=== PATIENT | female | born 1950 | race Caucasian/White ===

== ENCOUNTER 2016-08-29 01:00 | Inpatient (IN) | payer BC, MEDICAID ==
[~2016-08-29] VITALS: Ht 142.2 cm; Wt 77.1 kg
[2016-08-29] MEDS ORDERED: OCTREOTIDE ACETATE 50 MCG/ML 1ML IV STA (01:42)
[2016-08-29] MEDS ORDERED: SODIUM CHLORIDE 0.9% 1,000 ML IV ONE (01:42)
[2016-08-29] MEDS ORDERED: PANTOPRAZOLE SODIUM 40 MG/VIAL IV STA (01:42)
[2016-08-29] MEDS ORDERED: ONDANSETRON HCL 4MG/2ML VIAL IV STA (01:42)
[2016-08-29 02:15] LABS: CHLORIDE 101 mEq/L (98-107); INDEX HEMOLYSI 1 (1-3); INDEX ICTERIC 2 (1-4); INDEX LIPEMIC 1 (1-3)
[2016-08-29 02:16] LABS: BASOPHILS % 0.9 % (0.0-2.0); HEMATOCRIT. 32.8 % (36.0-48.0); HEMOGLOBIN. 10.9 g/dL (12.0-16.0); LYMPHOCYTES % 20.6 % (20.0-50.0); MEAN CORPUSCULAR HEMOGLOBIN 32.1 pg (28.0-32.0); MEAN CORPUSCULAR HGB CONC 33.4 g/dL (31.0-37.0); MEAN CORPUSCULAR VOLUME 96.2 fL (81.0-99.0); MEAN PLATELET VOLUME 9.7 fl (7.4-10.4); MONOCYTES % 6.8 % (2.0-8.0); NEUTROPHILS % 69.7 % (40.0-76.0); PLATELET 156 x1000/uL (130-400); RED BLOOD CELL COUNT 3.41 mill/uL (4.2-5.4); RED CELL DISTRIBUTION WIDTH 14.6 % (11.6-14.6); WHITE BLOOD COUNT 9.5 x1000/uL (4.5-11.0)
[2016-08-29 02:20] LABS: INR 1.2; PARTIAL THROMBOPLASTIN TIME 25.1 sec (24.0-34.0); PROTHROMBIN TIME 12.2 sec
[2016-08-29 02:24] LABS: ALANINE AMINOTRANSFERASE 40 IU/L (13-61); ALBUMIN 2.5 g/dL (3.4-5.0); ANION GAP 15; CALCIUM 9.4 mg/dL (8.5-10.1); CARBON DIOXIDE 27 mEq/L (21-32); LIPASE 220 IU/L (73-393); UREA NITROGEN BLOOD 20 mg/dL (7-21); eGFR > 60 mL/min (>60)
[2016-08-29] MEDS ORDERED: OCTREOTIDE 1,000 MCG in SODIUM CHLORIDE 0.9% 100 ML IV STA (02:31)
[2016-08-29] MEDS ORDERED: CEFTRIAXONE 1 G PREMIX 50 ML IV ONE (02:45)
[2016-08-29] MEDS ORDERED: ONDANSETRON HCL 4MG/2ML VIAL IV ONE (02:45)
[2016-08-29] MEDS ORDERED: GLIP10TA10 PO (03:50)
[2016-08-29] MEDS ORDERED: SPIR50TA26 PO (03:52)
[2016-08-29] MEDS ORDERED: DOCU-138 PO (03:52)
[2016-08-29] MEDS ORDERED: RIFA550T PO (03:53)
[2016-08-29] MEDS ORDERED: LEVO25TA7 PO (03:54)
[2016-08-29] MEDS ORDERED: FAMO20TA8 PO (03:54)
[2016-08-29] MEDS ORDERED: PROP20TA7 PO (03:55)
[2016-08-29] MEDS ORDERED: FURO40TA5 PO (03:56)
[2016-08-29 04:40] LABS: BASOPHILS % 0.2 % (0.0-2.0); EOSINOPHILS % 0.4 % (0.0-5.0); HEMATOCRIT. 30.3 % (36.0-48.0); HEMOGLOBIN. 10.3 g/dL (12.0-16.0); LYMPHOCYTES % 9.1 % (20.0-50.0); MEAN CORPUSCULAR HEMOGLOBIN 33.1 pg (28.0-32.0); MEAN CORPUSCULAR VOLUME 97.6 fL (81.0-99.0); MEAN PLATELET VOLUME 9.6 fl (7.4-10.4); MONOCYTES % 5.4 % (2.0-8.0); NEUTROPHILS % 84.9 % (40.0-76.0); PLATELET 133 x1000/uL (130-400); RED BLOOD CELL COUNT 3.11 mill/uL (4.2-5.4); RED CELL DISTRIBUTION WIDTH 14.4 % (11.6-14.6); WHITE BLOOD COUNT 9.6 x1000/uL (4.5-11.0)
[2016-08-29 12:00] VITALS: BP 128/70
[2016-08-29 12:10] VITALS: BP 128/70
[2016-08-29] MEDS ORDERED: ONDANSETRON HCL 4MG/2ML VIAL IV PRN (13:00)
[2016-08-29] MEDS ORDERED: HYDROMORPHONE HCL/PF 2MG/ML CPJ IV PRN (13:00)
[2016-08-29] MEDS ORDERED: PANTOPRAZOLE SODIUM 40 MG/VIAL IV SCH (13:00)
[2016-08-29] MEDS ORDERED: DEXTROSE 50% WATER 50ML SYRINGE IV PRN (13:15)
[2016-08-29] MEDS ORDERED: SIMETHICONE 40 MG/0.6 ML 30ML ONE (13:48)
[2016-08-29] MEDS ORDERED: SODIUM CHLORIDE 0.9% 10ML VIAL ONE (13:48)
[2016-08-29] MEDS: DEXT 5%/0.45% NACL 1000ML 1,000 ML IV SCH (14:00)
[2016-08-29] MEDS ORDERED: OCTREOTIDE 1,000 MCG in SODIUM CHLORIDE 0.9% 100 ML IV SCH (14:00)
[2016-08-29] MEDS: INSULIN LISPRO 100 UNITS/ML SUBCUT SCH ×3 (14:03→22:15)
[2016-08-29] MEDS ORDERED: PNEUMOCOCCAL 23-VAL P-SAC VAC 0.5 ML IM ONE (14:15)
[2016-08-29] MEDS: OCTREOTIDE 1,000 MCG in SODIUM CHLORIDE 0.9% 98 ML IV SCH (16:14)
[2016-08-29] MEDS ORDERED: MIDAZOLAM HCL 5 MG/5 ML VIAL IV PRN (16:27)
[2016-08-29] MEDS ORDERED: FENTANYL CITRATE/PF 50MCG/ML 2ML VIAL IV PRN (16:27)
[2016-08-29] MEDS ORDERED: MIDAZOLAM HCL 5 MG/5 ML VIAL ONE (16:31)
[2016-08-29] MEDS ORDERED: FENTANYL CITRATE/PF 50MCG/ML 2ML VIAL ONE (16:31)
[2016-08-29 18:00] VITALS: BP 110/62
[2016-08-29] MEDS: BLOOD SUGAR DIAGNOSTIC STRIP TEST SCH ×2 (18:26→21:00)
[2016-08-29] MEDS: PANTOPRAZOLE SODIUM 40 MG/VIAL IV SCH (18:33)
[2016-08-29 19:56] LABS: HEPATITIS B SURFACE ANTIGEN NEGATIVE
[2016-08-29 20:24] LABS: HEPATITIS C VIR.AB < 0.02 INDEXVAL (0.00-0.80)
[2016-08-29 20:25] LABS: HEPATITIS B CORE AB IGM NEGATIVE
[2016-08-29 20:26] LABS: HEPATITIS A AB IGM NEGATIVE (NEGATIVE)
[2016-08-30 06:17] LABS: CHLORIDE 108 mEq/L (98-107); INDEX HEMOLYSI 1 (1-3); INDEX ICTERIC 1 (1-4); INDEX LIPEMIC 1 (1-3)
[2016-08-30 06:23] LABS: BASOPHILS % 0.4 % (0.0-2.0); EOSINOPHILS % 4.3 % (0.0-5.0); HEMATOCRIT. 26.5 % (36.0-48.0); LYMPHOCYTES % 18.7 % (20.0-50.0); MEAN CORPUSCULAR HEMOGLOBIN 33.1 pg (28.0-32.0); MEAN CORPUSCULAR HGB CONC 33.8 g/dL (31.0-37.0); MEAN PLATELET VOLUME 9.4 fl (7.4-10.4); MONOCYTES % 7.6 % (2.0-8.0); PLATELET 121 x1000/uL (130-400); RED BLOOD CELL COUNT 2.71 mill/uL (4.2-5.4); RED CELL DISTRIBUTION WIDTH 14.9 % (11.6-14.6); WHITE BLOOD COUNT 6.8 x1000/uL (4.5-11.0)
[2016-08-30 06:34] LABS: ALANINE AMINOTRANSFERASE 32 IU/L (13-61); ANION GAP 13; BILIRUBIN DIRECT 0.7 mg/dL (0.0-0.2); CALCIUM 8.2 mg/dL (8.5-10.1); CARBON DIOXIDE 25 mEq/L (21-32); THYROID STIMULATING HORMONE 0.46 uIU/mL (0.36-3.74); UREA NITROGEN BLOOD 22 mg/dL (7-21); eGFR > 60 mL/min (>60)
[2016-08-30] MEDS: BLOOD SUGAR DIAGNOSTIC STRIP TEST SCH ×4 (06:52→20:58)
[2016-08-30] MEDS: DEXT 5%/0.45% NACL 1000ML 1,000 ML IV SCH ×2 (06:52→20:59)
[2016-08-30 08:00] VITALS: BP 114/63
[2016-08-30] MEDS: INSULIN LISPRO 100 UNITS/ML SUBCUT SCH ×4 (08:10→21:35)
[2016-08-30] MEDS: PANTOPRAZOLE SODIUM 40 MG/VIAL IV SCH ×2 (11:15→17:29)
[2016-08-30 12:00] VITALS: BP 106/57
[2016-08-30] MEDS: OCTREOTIDE 1,000 MCG in SODIUM CHLORIDE 0.9% 98 ML IV SCH (13:45)
[2016-08-30 16:00] VITALS: BP 110/62
[2016-08-30 20:00] VITALS: BP 122/70
[2016-08-31] VITALS: BP 118/68
[2016-08-31 04:00] VITALS: BP 97/57
[2016-08-31] MEDS: DEXT 5%/0.45% NACL 1000ML 1,000 ML IV SCH ×2 (06:06→18:42)
[2016-08-31] MEDS: BLOOD SUGAR DIAGNOSTIC STRIP TEST SCH ×3 (06:09→17:40)
[2016-08-31] MEDS: INSULIN LISPRO 100 UNITS/ML SUBCUT SCH ×3 (06:18→18:17)
[2016-08-31 08:00] VITALS: BP 113/59
[2016-08-31] MEDS: PANTOPRAZOLE SODIUM 40 MG/VIAL IV SCH ×2 (09:14→18:33)
[2016-08-31] MEDS: OCTREOTIDE 1,000 MCG in SODIUM CHLORIDE 0.9% 98 ML IV SCH (11:25)
[2016-08-31 12:00] VITALS: BP 106/59
[2016-08-31 16:00] VITALS: BP 110/70
[2016-08-31 21:23] VITALS: BP 110/63
== END 2016-08-31 22:40 | disposition home or self-care (01) | DRG 432 ==
LOC: ER 01:00 → 7WST 04:22
PROVIDERS: ADMIT Internal Medicine; ATTEND Internal Medicine
PROC: 06L34CZ Occlusion of Esophageal Vein with Extraluminal Device, Percutaneous Endoscopic Approach (ICD-10-PCS; principal; 2016-08-29 16:00)
DX: K74.3 Primary biliary cirrhosis (principal); I85.01 Esophageal varices with bleeding; K76.6 Portal hypertension; R18.8 Other ascites; D62 Acute posthemorrhagic anemia; E03.9 Hypothyroidism, unspecified; E11.65 Type 2 diabetes mellitus with hyperglycemia; I10 Essential (primary) hypertension; K31.89 Other diseases of stomach and duodenum; E66.9 Obesity, unspecified; E88.09 Other disorders of plasma-protein metabolism, not elsewhere classified; R74.0 Nonspecific elevation of levels of transaminase and lactic acid dehydrogenase [LDH]; Z68.38 Body mass index [BMI] 38.0-38.9, adult
CPT/HCPCS: 36415; 70450; 76705; 80053; 80076; 82248; 82962; 83690; 84443; 85025; 85610; 85730; 86705; 86709; 86803; 86850; 86900; 87340; 96361; 96365; 96375; 96376; 99285; A4216; C9113; J0696; J1170; J1815; J2250; J2354; J2405; J3010; J3490; J7030; J7050

== ENCOUNTER 2017-10-05 21:49 | Emergency (ER) | payer OTHER, MEDICAID ==
[~2017-10-05] VITALS: Ht 144.8 cm; Wt 75.0 kg
[~2017-10-05 21:49] MED LIST: DOCU-138 PO; FAMO20TA8 PO; FURO40TA5 PO; GLIP10TA10 PO; LEVO25TA7 PO; PROP20TA7 PO; RIFA550T PO; SPIR50TA26 PO
[2017-10-05 22:30] VITALS: BP 135/71
== END 2017-10-05 22:30 | disposition left against medical advice (07) ==
LOC: ER 21:49
DX: Z53.21 Procedure and treatment not carried out due to patient leaving prior to being seen by health care provider (principal)

== ENCOUNTER 2019-02-17 15:00 | Inpatient (IN) | payer MEDICARE, MEDICAID ==
[~2019-02-17] VITALS: Ht 152.4 cm; Wt 49.9 kg
[~2019-02-17 15:00] MED LIST changes: -SPIR50TA26 PO; +SPIR50TA5 PO
[2019-02-17 18:06] LABS: BASOPHILS % 0.2 % (0.0-2.0); HEMATOCRIT. 34.5 % (36.0-48.0); HEMOGLOBIN. 11.9 g/dL (12.0-16.0); LYMPHOCYTES % 9.5 % (20.0-50.0); MEAN CORPUSCULAR HEMOGLOBIN 33.8 pg (28.0-32.0); MEAN CORPUSCULAR VOLUME 98.3 fL (81.0-99.0); MONOCYTES % 9.9 % (2.0-8.0); NEUTROPHILS % 79.4 % (40.0-76.0); RED BLOOD CELL COUNT 3.51 mill/uL (4.2-5.4); RED CELL DISTRIBUTION WIDTH 15.8 % (11.6-14.6)
[2019-02-17 18:13] LABS: CHLORIDE 98 mEq/L (98-107)
[2019-02-17 19:28] LABS: CLARITY URINE CLEAR (CLEAR); COLOR URINE DARK YELLOW (YELLOW); KETONES URINE NEGATIVE (NEGATIVE); LEUKOCYTE ESTERASE URINE NEGATIVE (NEGATIVE); NITRITE URINE NEGATIVE (NEGATIVE); OCCULT BLOOD URINE NEGATIVE (NEGATIVE); PH URINE 5.5 (4.5-8.0); PROTEIN URINE NEGATIVE (NEGATIVE); SPECIFIC GRAVITY URINE 1.011 (1.005-1.030)
[2019-02-18] VITALS (7 sets, daily range): BP systolic 96–119; BP diastolic 45–72
[2019-02-18] MEDS ORDERED: DEXTROSE 50% WATER 50ML SYRINGE IV PRN (01:00)
[2019-02-18 03:43] LABS: BASOPHILS % 0.6 % (0.0-2.0); EOSINOPHILS % 0.8 % (0.0-5.0); HEMATOCRIT. 35.4 % (36.0-48.0); HEMOGLOBIN. 12.1 g/dL (12.0-16.0); LYMPHOCYTES % 9.8 % (20.0-50.0); MEAN CORPUSCULAR HEMOGLOBIN 32.9 pg (28.0-32.0); MEAN PLATELET VOLUME 8.2 fl (7.4-10.4); MONOCYTES % 8.7 % (2.0-8.0); NEUTROPHILS % 80.1 % (40.0-76.0); PLATELET 101 x1000/uL (130-400); RED BLOOD CELL COUNT 3.69 mill/uL (4.2-5.4); RED CELL DISTRIBUTION WIDTH 15.8 % (11.6-14.6)
[2019-02-18 03:52] LABS: CHLORIDE 98 mEq/L (98-107)
[2019-02-18] MEDS: LEVOTHYROXINE SODIUM 25MCG TABLET PO SCH (06:42)
[2019-02-18] MEDS: BLOOD SUGAR DIAGNOSTIC STRIP TEST SCH ×4 (06:42→21:00)
[2019-02-18] MEDS: DOCUSATE SODIUM 100MG CAPSULE PO SCH (08:25)
[2019-02-18] MEDS: RIFAXIMIN 550 MG TABLET PO SCH ×2 (08:25→16:58)
[2019-02-18] MEDS: FAMOTIDINE 20MG TABLET PO SCH (08:25)
[2019-02-18] MEDS: HEPARIN 5000 UNITS/ML VIAL SUBCUT SCH ×3 (08:26→23:31)
[2019-02-18] MEDS: PROPRANOLOL HCL 10MG TABLET PO SCH ×4 (08:28→23:31)
[2019-02-18] MEDS: INSULIN LISPRO 100 UNITS/ML SUBCUT SCH ×4 (08:29→21:00)
[2019-02-18 18:53] LABS: INR 1.3; PARTIAL THROMBOPLASTIN TIME 33.6 sec (23.4-31.0); PROTHROMBIN TIME 13.6 sec (9.6-11.0)
[2019-02-18] MEDS: LACTULOSE 20G/30ML UDC PO SCH (23:31)
[2019-02-19] VITALS: BP 114/54
[2019-02-19 04:00] VITALS: BP 123/57
[2019-02-19] MEDS: LACTULOSE 20G/30ML UDC PO SCH ×4 (06:29→17:22)
[2019-02-19] MEDS: BLOOD SUGAR DIAGNOSTIC STRIP TEST SCH ×4 (06:29→21:12)
[2019-02-19] MEDS: LEVOTHYROXINE SODIUM 25MCG TABLET PO SCH (06:29)
[2019-02-19 06:59] LABS: BASOPHILS % 0.3 % (0.0-2.0); EOSINOPHILS % 0.6 % (0.0-5.0); HEMATOCRIT. 35.7 % (36.0-48.0); HEMOGLOBIN. 12.6 g/dL (12.0-16.0); LYMPHOCYTES % 11.3 % (20.0-50.0); MEAN CORPUSCULAR HEMOGLOBIN 33.6 pg (28.0-32.0); MEAN CORPUSCULAR VOLUME 95.1 fL (81.0-99.0); MEAN PLATELET VOLUME 8.1 fl (7.4-10.4); MONOCYTES % 8.7 % (2.0-8.0); NEUTROPHILS % 79.1 % (40.0-76.0); PLATELET 109 x1000/uL (130-400); RED BLOOD CELL COUNT 3.76 mill/uL (4.2-5.4); RED CELL DISTRIBUTION WIDTH 16.2 % (11.6-14.6)
[2019-02-19 07:15] LABS: CHLORIDE 98 mEq/L (98-107)
[2019-02-19] MEDS: INSULIN LISPRO 100 UNITS/ML SUBCUT SCH ×4 (07:50→21:24)
[2019-02-19 08:00] VITALS: BP 101/66
[2019-02-19] MEDS: HEPARIN 5000 UNITS/ML VIAL SUBCUT SCH ×2 (08:44→22:42)
[2019-02-19] MEDS: FAMOTIDINE 20MG TABLET PO SCH (09:00)
[2019-02-19] MEDS: PROPRANOLOL HCL 10MG TABLET PO SCH ×2 (09:00→21:00)
[2019-02-19] MEDS: RIFAXIMIN 550 MG TABLET PO SCH ×3 (09:00→17:15)
[2019-02-19] MEDS: DOCUSATE SODIUM 100MG CAPSULE PO SCH ×2 (09:00→19:37)
[2019-02-19 12:00] VITALS: BP 120/61
[2019-02-19 16:00] VITALS: BP 102/52
[2019-02-19] MEDS ORDERED: CLONIDINE 0.1MG TABLET PO PRN (18:30)
[2019-02-19] MEDS ORDERED: ACETAMINOPHEN 650MG SUPP PR PRN (18:30)
[2019-02-19] MEDS ORDERED: DOCUSATE SODIUM 100MG CAPSULE PO SCH (18:30)
[2019-02-19] MEDS ORDERED: DIPHENHYDRAMINE 50MG/ML VIAL IV PRN (18:30)
[2019-02-19] MEDS ORDERED: ACETAMINOPHEN 325MG TABLET PO PRN (18:30)
[2019-02-19] MEDS ORDERED: BISACODYL 10MG SUPP PR NR ×2 (18:30→19:30)
[2019-02-19] MEDS ORDERED: HYDROCODONE/ACETAMINOPHEN 5/325MG TABLET PO PRN (18:30)
[2019-02-19 20:00] VITALS: BP 107/96
[2019-02-20] VITALS: BP 97/58
[2019-02-20] MEDS: LACTULOSE 20G/30ML UDC PO SCH ×4 (00:21→17:26)
[2019-02-20 04:00] VITALS: BP 104/70
[2019-02-20] MEDS: LEVOTHYROXINE SODIUM 25MCG TABLET PO SCH (06:25)
[2019-02-20] MEDS: BLOOD SUGAR DIAGNOSTIC STRIP TEST SCH ×4 (06:36→21:39)
[2019-02-20] MEDS: INSULIN LISPRO 100 UNITS/ML SUBCUT SCH ×4 (07:50→21:47)
[2019-02-20 08:00] VITALS: BP 115/61
[2019-02-20 08:07] LABS: HEMATOCRIT 36.1 % (36.0-48.0); HEMOGLOBIN 12.4 g/dL (12.0-16.0); MEAN CORPUSCULAR VOLUME 95.8 fL (81.0-99.0); PLATELET 113 x1000/uL (130-400); RED BLOOD CELL COUNT 3.77 mill/uL (4.2-5.4); RED CELL DISTRIBUTION WIDTH 16.7 % (11.6-14.6)
[2019-02-20 08:30] LABS: CHLORIDE 101 mEq/L (98-107)
[2019-02-20] MEDS: FAMOTIDINE 20MG TABLET PO SCH (09:14)
[2019-02-20] MEDS: RIFAXIMIN 550 MG TABLET PO SCH ×2 (09:14→16:35)
[2019-02-20] MEDS: DOCUSATE SODIUM 100MG CAPSULE PO SCH ×2 (09:14→16:35)
[2019-02-20] MEDS: PROPRANOLOL HCL 10MG TABLET PO SCH ×2 (09:15→21:00)
[2019-02-20] MEDS: HEPARIN 5000 UNITS/ML VIAL SUBCUT SCH ×2 (09:15→21:48)
[2019-02-20 12:00] VITALS: BP 95/51
[2019-02-20 16:00] VITALS: BP 92/56
[2019-02-20 20:00] VITALS: BP 97/58
[2019-02-21] VITALS (7 sets, daily range): BP systolic 89–110; BP diastolic 46–62
[2019-02-21] MEDS: LACTULOSE 20G/30ML UDC PO SCH ×4 (00:18→17:00)
[2019-02-21] MEDS: LEVOTHYROXINE SODIUM 25MCG TABLET PO SCH (06:20)
[2019-02-21] MEDS: BLOOD SUGAR DIAGNOSTIC STRIP TEST SCH ×3 (06:20→17:57)
[2019-02-21] MEDS: INSULIN LISPRO 100 UNITS/ML SUBCUT SCH ×3 (08:59→18:08)
[2019-02-21] MEDS: DOCUSATE SODIUM 100MG CAPSULE PO SCH ×2 (09:00→17:00)
[2019-02-21] MEDS: HEPARIN 5000 UNITS/ML VIAL SUBCUT SCH (09:00)
[2019-02-21] MEDS: PROPRANOLOL HCL 10MG TABLET PO SCH (10:47)
[2019-02-21] MEDS: RIFAXIMIN 550 MG TABLET PO SCH ×2 (10:47→17:50)
[2019-02-21] MEDS: FAMOTIDINE 20MG TABLET PO SCH (10:48)
== END 2019-02-21 21:03 | disposition home or self-care (01) | DRG 441 ==
LOC: ER 15:00 → 6EST 22:55 → EDBEDREQ 22:56 → EDBEDREQTM 22:56 → ENRESERV 23:17
PROVIDERS: ADMIT Ophthalmology; ATTEND Ophthalmology
DX: K72.90 Hepatic failure, unspecified without coma (principal); E43 Unspecified severe protein-calorie malnutrition; I85.10 Secondary esophageal varices without bleeding; R18.8 Other ascites; K74.60 Unspecified cirrhosis of liver; D53.9 Nutritional anemia, unspecified; D69.59 Other secondary thrombocytopenia; E03.9 Hypothyroidism, unspecified; E11.9 Type 2 diabetes mellitus without complications; E86.0 Dehydration; E88.09 Other disorders of plasma-protein metabolism, not elsewhere classified; F03.90 Unspecified dementia, unspecified severity, without behavioral disturbance, psychotic disturbance, mood disturbance, and anxiety; K59.00 Constipation, unspecified; K80.20 Calculus of gallbladder without cholecystitis without obstruction; I10 Essential (primary) hypertension; F41.1 Generalized anxiety disorder; Z51.5 Encounter for palliative care; Z79.899 Other long term (current) drug therapy
CPT/HCPCS: 36415; 74018; 74181; 76700; 76705; 80048; 80076; 81003; 82140; 82248; 82270; 82962; 83540; 83550; 84443; 85027; 99285; A6261; J1644; J1815

== ENCOUNTER 2019-02-24 08:38 | Inpatient (IN) | payer OTHER, MEDICAID ==
[~2019-02-24] VITALS: Ht 182.9 cm; Wt 56.2 kg
[2019-02-24 09:23] LABS: HEMATOCRIT. 38.4 % (36.0-48.0); HEMOGLOBIN. 13.4 g/dL (12.0-16.0); MEAN CORPUSCULAR HEMOGLOBIN 33.7 pg (28.0-32.0); MEAN CORPUSCULAR VOLUME 96.5 fL (81.0-99.0); MEAN PLATELET VOLUME 8.4 fl (7.4-10.4); PLATELET 117 x1000/uL (130-400); RED BLOOD CELL COUNT 3.98 mill/uL (4.2-5.4); RED CELL DISTRIBUTION WIDTH 17.4 % (11.6-14.6)
[2019-02-24 09:27] LABS: CHLORIDE 100 mEq/L (98-107)
[2019-02-24 09:36] LABS: INR 1.3; PROTHROMBIN TIME 13.4 sec (9.6-11.0)
[2019-02-24 09:50] LABS: PLATELET ESTIMATE DECREASED
[2019-02-24] MEDS: RIFAXIMIN 550 MG TABLET PO SCH (19:15)
[2019-02-24] MEDS ORDERED: PANTOPRAZOLE SODIUM 40 MG/VIAL IV SCH (19:15)
[2019-02-24] MEDS ORDERED: HYDROMORPHONE HCL/PF 2MG/ML CPJ IV PRN (19:15)
[2019-02-24] MEDS ORDERED: ONDANSETRON HCL 4MG/2ML INJ IV PRN (19:15)
[2019-02-24 22:04] LABS: HEMATOCRIT 35.4 % (36.0-48.0); HEMOGLOBIN 12.2 g/dL (12.0-16.0)
[2019-02-24 22:31] LABS: FOLIC ACID (FOLATE) SERUM 5.1 ng/mL (>5.38)
[2019-02-24] MEDS ORDERED: PROPRANOLOL HCL 20MG TABLET PO SCH (23:00)
[2019-02-24] MEDS: LEVOTHYROXINE SODIUM 25MCG TABLET PO SCH (23:00)
[2019-02-24] MEDS: PANTOPRAZOLE SODIUM 40 MG/VIAL IV SCH (23:21)
[2019-02-24 23:30] VITALS: BP 108/64
[2019-02-24] MEDS ORDERED: DEXTROSE 50% WATER 50ML SYRINGE IV PRN (23:45)
[2019-02-25] VITALS: BP 108/64
[2019-02-25] MEDS ORDERED: DEXT 5%/0.45% NACL KCL 20MEQ/L 1,000 ML IV ONE
[2019-02-25] MEDS: CEFTRIAXONE SODIUM 1 G/VIAL IM SCH (01:07)
[2019-02-25 04:00] VITALS: BP 105/60
[2019-02-25] MEDS: BLOOD SUGAR DIAGNOSTIC STRIP TEST SCH ×4 (05:57→20:40)
[2019-02-25 07:38] LABS: BASOPHILS % 0.2 % (0.0-2.0); EOSINOPHILS % 0.1 % (0.0-5.0); HEMATOCRIT. 33.5 % (36.0-48.0); HEMOGLOBIN. 11.4 g/dL (12.0-16.0); LYMPHOCYTES % 9.1 % (20.0-50.0); MEAN CORPUSCULAR HEMOGLOBIN 33.5 pg (28.0-32.0); MEAN PLATELET VOLUME 8.5 fl (7.4-10.4); MONOCYTES % 9.7 % (2.0-8.0); NEUTROPHILS % 80.9 % (40.0-76.0); PLATELET 98 x1000/uL (130-400); RED BLOOD CELL COUNT 3.42 mill/uL (4.2-5.4)
[2019-02-25 08:04] LABS: CHLORIDE 103 mEq/L (98-107)
[2019-02-25] MEDS: INSULIN LISPRO 100 UNITS/ML SUBCUT SCH ×4 (08:10→20:40)
[2019-02-25 08:33] VITALS: BP 100/44
[2019-02-25] MEDS ORDERED: PROPRANOLOL HCL 10MG TABLET PO SCH (09:00)
[2019-02-25] MEDS: RIFAXIMIN 550 MG TABLET PO SCH ×2 (09:58→18:15)
[2019-02-25] MEDS: PANTOPRAZOLE SODIUM 40 MG/VIAL IV SCH ×2 (09:59→18:15)
[2019-02-25] MEDS: DOCUSATE SODIUM 100MG CAPSULE PO SCH (09:59)
[2019-02-25] MEDS: LEVOTHYROXINE SODIUM 25MCG TABLET PO SCH (09:59)
[2019-02-25 12:14] VITALS: BP_SYST 113; BP_SYST 90; BP_DIAS 41; BP_DIAS 59
[2019-02-25] MEDS ORDERED: LIDOCAINE HCL/PF 1% 10 MG/ML 5ML VIAL ONE (15:13)
[2019-02-25] MEDS ORDERED: PROPOFOL 200MG/20ML VIAL IV ONE (15:13)
[2019-02-25] MEDS ORDERED: SIMETHICONE 40 MG/0.6 ML 30ML ONE (15:15)
[2019-02-25 15:38] LABS: HEMATOCRIT 34.4 % (36.0-48.0); HEMOGLOBIN 11.8 g/dL (12.0-16.0)
[2019-02-25 16:47] LABS: CLARITY URINE TURBID (CLEAR); COLOR URINE DARK YELLOW (YELLOW); KETONES URINE NEGATIVE (NEGATIVE); LEUKOCYTE ESTERASE URINE 3+ (NEGATIVE); NITRITE URINE POSITIVE (NEGATIVE); OCCULT BLOOD URINE 3+ (NEGATIVE); PROTEIN URINE TRACE (NEGATIVE); SPECIFIC GRAVITY URINE 1.017 (1.005-1.030)
[2019-02-25] MEDS: PROPRANOLOL HCL 10MG TABLET PO SCH (18:00)
[2019-02-25] MEDS: METOCLOPRAMIDE HCL 10MG/2ML VIAL IV SCH (18:15)
[2019-02-25] MEDS: SUCRALFATE 1 G/10 ML UDC PO SCH ×2 (18:15→20:41)
[2019-02-25 20:00] VITALS: BP 101/48
[2019-02-25 23:30] LABS: HEMATOCRIT 33.1 % (36.0-48.0); HEMOGLOBIN 11.4 g/dL (12.0-16.0)
[2019-02-26] VITALS: BP 109/59
[2019-02-26] MEDS: CEFTRIAXONE SODIUM 1 G/VIAL IM SCH (01:38)
[2019-02-26 04:00] VITALS: BP 108/53
[2019-02-26] MEDS: PROPRANOLOL HCL 10MG TABLET PO SCH ×4 (06:00→18:00)
[2019-02-26 06:31] LABS: BASOPHILS % 0.2 % (0.0-2.0); EOSINOPHILS % 0.6 % (0.0-5.0); HEMATOCRIT. 33.1 % (36.0-48.0); HEMOGLOBIN. 11.5 g/dL (12.0-16.0); LYMPHOCYTES % 12.9 % (20.0-50.0); MEAN CORPUSCULAR HEMOGLOBIN 33.9 pg (28.0-32.0); MEAN CORPUSCULAR VOLUME 97.6 fL (81.0-99.0); MEAN PLATELET VOLUME 8.3 fl (7.4-10.4); MONOCYTES % 10.2 % (2.0-8.0); NEUTROPHILS % 76.1 % (40.0-76.0); PLATELET 88 x1000/uL (130-400); RED BLOOD CELL COUNT 3.39 mill/uL (4.2-5.4); RED CELL DISTRIBUTION WIDTH 17.9 % (11.6-14.6)
[2019-02-26 06:51] LABS: CHLORIDE 105 mEq/L (98-107)
[2019-02-26] MEDS: INSULIN LISPRO 100 UNITS/ML SUBCUT SCH ×4 (07:59→21:35)
[2019-02-26] MEDS: BLOOD SUGAR DIAGNOSTIC STRIP TEST SCH ×4 (07:59→21:35)
[2019-02-26 08:00] VITALS: BP 99/54
[2019-02-26] MEDS: PANTOPRAZOLE SODIUM 40 MG/VIAL IV SCH ×2 (08:51→18:13)
[2019-02-26] MEDS: SUCRALFATE 1 G/10 ML UDC PO SCH ×4 (08:51→21:34)
[2019-02-26] MEDS: METOCLOPRAMIDE HCL 10MG/2ML VIAL IV SCH ×3 (08:51→18:13)
[2019-02-26] MEDS: LEVOTHYROXINE SODIUM 25MCG TABLET PO SCH (08:52)
[2019-02-26] MEDS: RIFAXIMIN 550 MG TABLET PO SCH ×2 (08:52→18:13)
[2019-02-26] MEDS: DOCUSATE SODIUM 100MG CAPSULE PO SCH (08:52)
[2019-02-26 12:00] VITALS: BP 101/57
[2019-02-26 16:00] VITALS: BP 101/49
[2019-02-26 16:09] LABS: HEMATOCRIT 36.8 % (36.0-48.0); HEMOGLOBIN 12.4 g/dL (12.0-16.0)
[2019-02-26 20:08] VITALS: BP 106/55
[2019-02-26 23:34] LABS: HEMATOCRIT 33.9 % (36.0-48.0); HEMOGLOBIN 11.7 g/dL (12.0-16.0)
[2019-02-27] VITALS: BP 107/54
[2019-02-27] MEDS: CEFTRIAXONE SODIUM 1 G/VIAL IM SCH (02:09)
[2019-02-27 04:00] VITALS: BP 103/50
[2019-02-27] MEDS: PROPRANOLOL HCL 10MG TABLET PO SCH ×3 (06:00→08:28)
[2019-02-27 07:12] LABS: INR 1.4
[2019-02-27 07:26] LABS: BASOPHILS % 0.3 % (0.0-2.0); EOSINOPHILS % 1.6 % (0.0-5.0); HEMATOCRIT. 34.7 % (36.0-48.0); LYMPHOCYTES % 13.9 % (20.0-50.0); MEAN CORPUSCULAR HEMOGLOBIN 33.8 pg (28.0-32.0); MEAN CORPUSCULAR VOLUME 97.8 fL (81.0-99.0); MEAN PLATELET VOLUME 8.4 fl (7.4-10.4); MONOCYTES % 11.4 % (2.0-8.0); NEUTROPHILS % 72.8 % (40.0-76.0); PLATELET 111 x1000/uL (130-400); RED BLOOD CELL COUNT 3.55 mill/uL (4.2-5.4); RED CELL DISTRIBUTION WIDTH 18.3 % (11.6-14.6)
[2019-02-27 07:41] LABS: CHLORIDE 102 mEq/L (98-107)
[2019-02-27 07:51] LABS: GAMMA GLUTAMYL TRANSPEPTIDASE 110 IU/L (7-32)
[2019-02-27 07:55] LABS: LDL CHOLESTEROL 102 mg/dL (5-100)
[2019-02-27 07:57] LABS: HDL CHOLESTEROL 16 mg/dL (40-59)
[2019-02-27 08:00] VITALS: BP 105/55
[2019-02-27] MEDS: BLOOD SUGAR DIAGNOSTIC STRIP TEST SCH ×2 (08:00→13:05)
[2019-02-27] MEDS: INSULIN LISPRO 100 UNITS/ML SUBCUT SCH ×2 (08:10→13:05)
[2019-02-27] MEDS: SUCRALFATE 1 G/10 ML UDC PO SCH ×2 (08:25→13:04)
[2019-02-27] MEDS: METOCLOPRAMIDE HCL 10MG/2ML VIAL IV SCH ×2 (08:25→13:05)
[2019-02-27] MEDS: PANTOPRAZOLE SODIUM 40 MG/VIAL IV SCH (08:26)
[2019-02-27] MEDS: LEVOTHYROXINE SODIUM 25MCG TABLET PO SCH (08:28)
[2019-02-27] MEDS: RIFAXIMIN 550 MG TABLET PO SCH (08:28)
[2019-02-27] MEDS: DOCUSATE SODIUM 100MG CAPSULE PO SCH (08:28)
[2019-02-27 12:00] VITALS: BP 98/54
[2019-02-27 16:00] VITALS: BP 97/56
[2019-02-27 16:19] VITALS: BP 102/58
[2019-03-01 10:11] LABS: MITOCHONDRIAL M2 AB <20.0 Units (0.0-20.0)
[2019-03-01 13:14] LABS: ANTI-NUCLEAR ANTIBODIES DIRECT Negative (Negative)
[2019-03-02 08:07] LABS: ANA IFA Negative (.)
== END 2019-02-27 16:50 | disposition home or self-care (01) | DRG 432 ==
LOC: ER 08:38 → EDBEDREQ 12:11 → EDBEDREQTM 12:11 → CANRESERV 20:42 → ENRESERV 20:42 → 7WST 21:43 → ENRESERV 22:10
PROVIDERS: ADMIT Ophthalmology; ATTEND Ophthalmology
PROC: 0DB68ZX Excision of Stomach, Via Natural or Artificial Opening Endoscopic, Diagnostic (ICD-10-PCS; principal; 2019-02-25)
DX: K74.60 Unspecified cirrhosis of liver (principal); K22.11 Ulcer of esophagus with bleeding; K29.01 Acute gastritis with bleeding; N39.0 Urinary tract infection, site not specified; R18.8 Other ascites; I85.10 Secondary esophageal varices without bleeding; D69.6 Thrombocytopenia, unspecified; E03.9 Hypothyroidism, unspecified; E11.9 Type 2 diabetes mellitus without complications; E86.0 Dehydration; E88.09 Other disorders of plasma-protein metabolism, not elsewhere classified; F03.90 Unspecified dementia, unspecified severity, without behavioral disturbance, psychotic disturbance, mood disturbance, and anxiety; F41.9 Anxiety disorder, unspecified; I10 Essential (primary) hypertension; K31.89 Other diseases of stomach and duodenum; K72.90 Hepatic failure, unspecified without coma; K80.20 Calculus of gallbladder without cholecystitis without obstruction; Z51.5 Encounter for palliative care; D21.9 Benign neoplasm of connective and other soft tissue, unspecified; Z87.19 Personal history of other diseases of the digestive system; D63.8 Anemia in other chronic diseases classified elsewhere
CPT/HCPCS: 36415; 71045; 76830; 76856; 80061; 80076; 81003; 82140; 82248; 82270; 82390; 82607; 82728; 82746; 82962; 82977; 83516; 83540; 83550; 85014; 85018; 85651; 86038; 86256; 86850; 86900; 87077; 87186; 88305; 88312; 88313; 93005; 96374; 99285; A6261; C9113; J0696; J1815; J2704; J2765; J3490